=== PATIENT | male | born 1975 | race Caucasian/White ===

== ENCOUNTER 2017-12-17 09:07 | Emergency (ER) | payer OTHER ==
[~2017-12-17] VITALS: Ht 175.3 cm; Wt 67.2 kg
[~2017-12-17 09:07] MED LIST: CARAFATE100 MG/ML PO; PROTONIX40 MG PO; ZOFRAN4 MG PO
[2017-12-17 10:11] LABS: HEMOGLOBIN 15.8 G/DL (12.5-16.6); MCH 32.2 PG (29.0-34.0); MCHC 35.9 G/DL (30.0-36.0); MCV 89.6 FL (86-99); PLATELET COUNT 251 K/uL (156-360); RBC DIS.WIDTH-CV 12.3 % (11.8-14.6); RBC DIS.WIDTH-SD 40.6 % (39-53); RED BLOOD COUNT 4.91 M/uL (4.00-5.50); WHITE BLOOD COUNT 8.5 K/uL (4.1-10.2)
[2017-12-17 10:26] LABS: ALBUMIN 4.4 g/dL (3.2-4.8); CHLORIDE 106 mEq/L (99-109); POTASSIUM 3.6 mEq/L (3.7-5.4); SODIUM 139 mEq/L (136-147)
[2017-12-17 10:29] LABS: GLUCOSE 96 mg/dL (70-99); TOTAL PROTEIN 7.2 g/dL (6.4-8.3)
[2017-12-17 10:31] LABS: TOTAL BILIRUBIN 0.8 mg/dL (0.0-1.0)
[2017-12-17 10:32] LABS: ALKALINE PHOSPHATASE 88 IU/L (3-129); GFR ESTIMATE (CALCULATED) > 59 mL/min/ (58.99-99999)
[2017-12-17 10:33] LABS: UREA NITROGEN (BUN) 8 mg/dL (9-23)
[2017-12-17 10:34] LABS: AST (GOT) 13 IU/L (2-34)
[2017-12-17 10:35] LABS: ALT (GPT) 16 IU/L (3-49)
[2017-12-17 10:36] LABS: LIPASE 11 U/L (1.0-51.0)
[2017-12-17 11:40] LABS: APPEARANCE SL.HAZY ((CLEAR)); BILIRUBIN NEGATIVE; BLOOD NEGATIVE; COLOR YELLOW ((YELLOW)); GLUCOSE (STRIP) NEGATIVE; KETONES 20; LEUKOCYTES NEGATIVE; NITRITE NEGATIVE; PROTEIN (STRIP) 30; SPECIFIC GRAVITY 1.023 (1.000-1.030)
[2017-12-17 12:22] LABS: BACTERIA RARE /HPF; EPITHELIAL CELLS NONE SEEN /HPF; MUCUS 1+ /LPF; RED BLOOD CELLS NONE SEEN /HPF (0-5); WHITE BLOOD CELLS NONE SEEN /HPF (0-5)
[2017-12-17] MEDS ORDERED: OMEPRAZOLE40 M1 PO (12:37)
[2017-12-17] MEDS ORDERED: CARAFATE1 GM PO (12:37)
[2017-12-17 12:59] VITALS: BP 116/75
== END 2017-12-17 13:00 | disposition home or self-care (01) ==
LOC: EME 09:07
PROVIDERS: Nurse Practitioner Family
DX: R10.84 Generalized abdominal pain (principal); F17.200 Nicotine dependence, unspecified, uncomplicated; Q55.22 Retractile testis
CPT/HCPCS: 74176; 80053; 81003; 83690; 85027; 99281; 99285; J2270; J2405; J7030